=== PATIENT | male | born 1970 | race Two or more races ===

== ENCOUNTER 2018-09-22 23:11 | Emergency (ER) | payer BC ==
[~2018-09-22] VITALS: Ht 167.6 cm; Wt 76.0 kg
[2018-09-22 23:14] VITALS: BP 135/90
--- NOTE | 2018-09-22 23:37 | NUR ---
Pt to room from triage. Addendum: 09/23/18 at 0033 by [email or web address] EKG done in triage.
[2018-09-23 00:09] LABS: RAPID INFLUENZA A Negative (Negative); RAPID INFLUENZA B Negative (Negative)
== END 2018-09-23 01:04 | disposition home or self-care (01) ==
LOC: ED 23:59
DX: B34.9 Viral infection, unspecified (principal)
CPT/HCPCS: 71046; 87400; 93005; 99284